=== PATIENT | male | born 1990 | race Caucasian/White ===

== ENCOUNTER 2020-11-03 12:58 | Emergency (ER) | payer OTHER, SELFPAY ==
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
[2020-11-03 13:06] VITALS: BP 136/74; PULSE 83; RESP 18; TEMP 36.3; O2SAT 99
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
[2020-11-03] MEDS: TETANUS,DIPHTHERIA,AC PERTUSSIS ADULT (0.5 ML) BOOSTRIX IM (13:56)
== END 2020-11-03 14:16 | disposition home or self-care (01) ==
PROVIDERS: Emergency Provider Nurse Practitioner
DX: S67.194A Crushing injury of right ring finger, initial encounter (principal); X58.XXXA Exposure to other specified factors, initial encounter; Z23 Encounter for immunization
CPT/HCPCS: 73140; 90471; 90715; 99203; G0463

== ENCOUNTER 2021-03-19 15:09 | Emergency (ER) | payer OTHER, SELFPAY ==
[2021-03-19 15:19] VITALS: BP 131/76; PULSE 80; RESP 18; TEMP 36.9; O2SAT 99
--- NOTE | 2021-03-19 15:26 | ED.UPPEXIN ---
HPI - Extremity Injury (Upper) General Chief Complaint: Extremity Injury, Upper Stated Complaint: both hand pain Time Seen by Provider: 03/19/21 15:30 Source: patient and RN notes reviewed Mode of arrival: ambulatory Limitations: no limitations History of Present Illness HPI narrative: 30-year-old male presents with multiple complaints. He reports 3 months ago he was playing golf when he swung a club and hit a tree causing hand pain. He reports direct trauma to the hand. 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 Reports since the golfing incident he has had pain in his hand, decreased digital tech strength, pain that radiates up towards the elbow. He denies intervention for that problem. In a separate complaint he reports yesterday he was moving tires when he stuck his hand inside a tire and had to puncture areas from something sharp inside the tire. He reports he washed the wound. He reports today he began having stinging pain and numbness in the area. He denies any redness, swelling, tenderness, drainage from the area. He denies decreased strength, range of motion. MD complaint: injury to: left, right and hand Related Data Allergies Allergy/AdvReac Type Severity Reaction Status Date / Time amoxicillin Allergy Unknown Rash Verified 03/19/21 15:23 ampicillin Allergy Unknown Rash Verified 03/19/21 15:23 clavulanic acid Allergy Unknown Rash Verified 03/19/21 15:23 CEPHALEXIN MONOHYDRATE Allergy Unknown Rash Uncoded 03/19/21 15:23 Review of Systems Review of Systems: CONSTITUTIONAL: Denies malaise, chills, sweats, or fever. SKIN: Denies redness, swelling, bruising, open skin MUSCULOSKELETAL: Reports chronic left hand pain, decreased digital tech strength. Reports stinging pain to the right hand near the digits 1 and 2 All systems reviewed & are unremarkable except as noted in HPI and below PMFSH Comments At time of signature, agree with nursing past medical, surgical, social and family history. There is no relevant family history pertinent to the presenting complaint Exam Narrative: GENERAL: Well-appearing, well-nourished, and in no acute distress. HEAD: Normocephalic EYES: PERRLA, conjunctivae clear NECK: Supple. CHEST: Speaks in full sentences. No respiratory distress. HEART: Regular rate and rhythm. Normal and equal peripheral pulses. EXTREMITIES: Bilateral hands and digits of hand have normal strength and sensation. 5/5 strength with digit flexion, extension. Range of motion normal. No clubbing, cyanosis, erythema, induration or edema noted. No tenderness. Skin intact. Normal digital cascade with flexion of fingers, median, ulnar and radial nerve intact. Normal sensation of each side of finger. Can perform 'okay' sign, 'cross over finger test of index and middle fingers' and 'thumbs up' sign. No scissoring. Normal thumb opposition. Good capillary refill and radial pulse. Distal capillary refill less than 3 seconds. SKIN: Warn, dry, intact, pink. No rash. No puncture wounds appreciated NEURO: Alert and oriented x3. PSYCH: Normal mood and affect Course Course Emergency Course: Patient is aware of diagnosis, understands and agrees to treatment plan. Anticipatory guidance given. Patient agrees to follow-up as directed and is aware of reasons to seek care at the emergency department. Portions of this record may have been created with voice recognition software Vital Signs Vital signs: Vital Signs Temperature 98.5 F 03/19/21 15:19 Pulse Rate 80 03/19/21 15:19 Respiratory Rate 18 03/19/21 15:19 Blood Pressure 131/76 03/19/21 15:19 Pulse Oximetry 99 03/19/21 15:19 Temperature 98.5 F 03/19/21 15:19 Pulse Rate 80 03/19/21 15:19 Respiratory Rate 18 03/19/21 15:19 Blood Pressure 131/76 03/19/21 15:19 Pulse Oximetry 99 03/19/21 15:19 Reviewed. MDM - Extremity Injury (Upper) MDM Narrative Medical decision making narrative: Patients injury and pain is consistent with musculoskeletal etiolog
== END 2021-03-19 15:45 | disposition home or self-care (01) ==
PROVIDERS: Emergency Provider Nurse Practitioner
DX: M77.8 Other enthesopathies, not elsewhere classified (principal); S61.431A Puncture wound without foreign body of right hand, initial encounter; W26.9XXA Contact with unspecified sharp object(s), initial encounter
CPT/HCPCS: 99213; G0463

== ENCOUNTER 2021-11-29 12:32 | Emergency (ER) | payer OTHER, SELFPAY ==
[2021-11-29 12:34] VITALS: BP 126/70; PULSE 71; RESP 20; TEMP 36.7; O2SAT 98
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
== END 2021-11-29 13:42 | disposition home or self-care (01) ==
PROVIDERS: Emergency Provider Registered Nurse
DX: J40 Bronchitis, not specified as acute or chronic (principal); J01.40 Acute pansinusitis, unspecified; J02.9 Acute pharyngitis, unspecified; Z87.891 Personal history of nicotine dependence
CPT/HCPCS: 87081; 87880; 99213; G0463

== ENCOUNTER 2022-03-06 17:39 | Emergency (ER) | payer OTHER, SELFPAY ==
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
[2022-03-06 17:44] VITALS: BP 133/78; PULSE 90; RESP 16; TEMP 36.7; O2SAT 98
== END 2022-03-06 18:15 | disposition home or self-care (01) ==
PROVIDERS: Emergency Provider Nurse Practitioner Family; PCP Nurse Practitioner Family
DX: J06.9 Acute upper respiratory infection, unspecified (principal); Z87.891 Personal history of nicotine dependence
CPT/HCPCS: 99211; G0463

== ENCOUNTER 2022-12-24 09:40 | Emergency (ER) | payer OTHER, SELFPAY ==
[2022-12-24 09:47] VITALS: BP 129/65; PULSE 97; RESP 16; TEMP 37.4; O2SAT 98
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
== END 2022-12-24 10:42 | disposition home or self-care (01) ==
PROVIDERS: Emergency Provider Nurse Practitioner Family; PCP Nurse Practitioner Family
DX: J32.9 Chronic sinusitis, unspecified (principal); Z87.891 Personal history of nicotine dependence
CPT/HCPCS: 87081; 87880; 99213; G0463

== ENCOUNTER 2023-07-13 08:02 | Emergency (ER) | payer OTHER, SELFPAY ==
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
[2023-07-13 08:11] VITALS: BP 154/87; PULSE 97; RESP 16; TEMP 36.6; O2SAT 97
== END 2023-07-13 08:17 | disposition home or self-care (01) ==
PROVIDERS: Emergency Provider Nurse Practitioner Family; PCP Nurse Practitioner Family
DX: H66.92 Otitis media, unspecified, left ear (principal); J06.9 Acute upper respiratory infection, unspecified; Z87.891 Personal history of nicotine dependence
CPT/HCPCS: 99213; G0463

== ENCOUNTER 2025-04-19 14:15 | Emergency (ER) | payer OTHER, SELFPAY ==
--- NOTE | ~2025-04-19 | XR_ITS ---
EXAMINATION: XR chest 2V 04/19/2025 15:06 INDICATION: Cough TECHNIQUE:Frontal and lateral images of the chest were obtained. COMPARISON: 04/18/2025 FINDINGS: The lungs are clear. The cardiomediastinal silhouette is within normal limits. There are no pleural effusions. There is no pneumothorax suspected. Hardware is noted in the right clavicle. IMPRESSION: 1: NO ACUTE CARDIOPULMONARY DISEASE. Reviewed, dictated and finalized at location Q.
--- OUTSIDE RECORDS SUMMARY | 2025-04-19 14:19 | XMS_ITS | Clinical Summary ---
Author Organization [facility] [address] Address [address] [place] [address] Care Team Providers Care Rail Detector Car Operator Name Role Phone Melony, Sosa Jacob NP Primary Care Provider [phone] Allergies Active Allergy Reactions Criticality Noted Date Comments Amoxicillin-Pot Clavulanate Cephalexin Penicillins Medications meclizine (ANTIVERT) 25 mg tablet Take 25 mg by mouth 3 (three) times a day as needed 0 Active albuterol HFA (PROVENTIL HFA,VENTOLIN HFA,PROAIR HFA) 90 mcg/actuation inhaler INHALE 2 PUFFS BY INHALATION 4 TIMES DAILY NEEDED FOR SHORTNESS OF BREATH OR WHEEZING. 2 Active famotidine (PEPCID) 40 mg tabletIndicatio ns:Laryngeal spasm Take 1 tablet (40 mg total) by mouth nightly 90 tablet 3 2 Active Active Problems Problem Noted Date Diagnosed Date Laryngeal spasm 01/13/2022 Assessment & Plan (01/13/2022 3:59 PM CDT): Pepcid 40 mg at bedtime [place] Smoking Cessation Hotline: 4-592-LYXU-YES LPR discussed and Handout provided Sensorineural hearing loss ( SNHL) of left ear with unrestricted hearing of right ear 01/13/2022 Assessment & Plan (01/13/2022 4:00 PM CDT): Hearing test Pain radiating to lower abdomen 11/13/2019 Overview (11/13/2019): Added automatically from request for surgery [id number] Change in bowel habits 11/13/2019 Overview (11/13/2019): Added automatically from request for surgery [id number] Change in stool caliber 11/08/2019 Assessment & Plan (11/08/2019 2:26 PM CDT): Pt says that for the last 6 months, he has had very thin stools and looks as if something is blocking part of it and shaving part of stool off as it comes out. He did mention that at one point last year, when he was lifting weights, he felt something pop and there was something outside his rectum that went away after he rested from exercise for a week or two. He also has issues with alternating constipation/diarrhea. Pt appears very anxious about symptoms. Will schedule colonoscopy. Constipation 11/08/2019 Assessment & Plan (11/08/2019 2:24 PM CDT): Pt says he skips a couple of days and then suddenly will have multiple BM's for a day, then goes back to skipping a couple days again. He says usually not diarrhea. Will have him use Miralax prn. I suspect his symptoms are likely functional but due to recent changes in stool caliber and constipation, will schedule colonoscopy to rule out other causes. Lower abdominal pain 11/08/2019 Assessment & Plan (11/08/2019 2:20 PM CDT): Occurs when he is constipated. He says it is a cramping pain and gets a lot of gas. Fracture of clavicle 04/18/2013 Surgical History Surgery Date Site/Laterality Comments COLONOSCOPY 11/20/2019 1st CLAVICLE SURGERY 08/22/2012 - 08/21/2013 Right Medical History Medical History Date Comments Concussion 07/2019 Dizziness 07/2019 since concussion Family History Medical History Relation Name Comments No Known Problems Father No Known Problems Mother Relation Name Status Comments Father Alive Mother Alive Social History Tobacco Use Types Packs/Day Years Used Date Smoking Tobacco: Former Smokeless Tobacco: Current Chew Alcohol Use Standard Drinks/Week Comments Not Currently 0 (1 standard drink = 0.6 oz pur e alcohol) Personal Safety Answer Date Recorded Getting School Help Needed Not on file 10/18 Sex and Gender Information Value Date Recorded Sex Assigned at Not on file 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 Gender Identity Not on file Sexual Orientation Not on file Obstetrics History Last Filed Vital Signs Vital Sign Reading Time Taken Comments Blood Pressure 128/76 01/13/2022 3:28 PM CDT Pulse 95 01/13/2022 3:28 PM CDT Temperature 36.5 C (97.7 F) 01/13/2022 3:28 PM CDT Respiratory Rate 18 01/13/2022 3:28 PM CDT Oxygen Saturation 96% 01/13/2022 3:28 PM CDT Inhaled Oxygen Concentration - - Weight 107.5 kg (237 lb) 01/13/2022 3:28 PM CDT Height 180.3 cm (5' 11) 01/13/2022 3:28 PM CDT Body Mass Index 33.05 01/13/2022 3:28 PM CDT Plan of Treatment Health Maintenance Due Date Last Done Comments Depression Screening 1988 Hepatitis C Screening 1988 Varicella Vaccines (1 of 2 - 13+ 2-dose series) 2001 Regular Well Visit/Exam 18-64 2006 HPV Vaccines (1 - 3-dose SCDM series) 2015 Covid-19 Vaccine ( season) 2024 07/23/2021 Influenza Vaccine (#1) 2025 08/24/2018, 2015 DTaP/Tdap/Td Vaccine (7 - Td or Tdap) 05/21/2026 05/21/2016, 03/25/2003, 04/08/1994, Additional history exists Hepatitis B Screening Completed 11/14/1998 , 06/12/1998, 05/09/1998 Pneumococcal vaccine <65 Aged Out No longer eligible based on patient's age to complete this topic Insurance [facility] Member Subscriber Plan / Payer (Ef fective 2018-Present) Name:Luly Hassan Relation to Subscriber:Self Name:Luly Hassan Payer ID:[id number] (NAIC) Group ID:Not on file Type:MEDICAID RISK OTHER Address: [address] [place], [place] [id number] [place] [address] [facility] Advance Directives For more information, please contact: [phone] * Full Code (Latest Code Status on File) Date Activated Date Inactivated Comments 11/20/2019 8:04 AM 11/20/2019 1:57 PM * Full Code Date Activated Date Inactivated Comments 11/20/2019 8:04 AM 11/20/2019 8:04 AM Care Teams Rail Detector Car Operator Relationship Specialty Start Date End Date Ty, Sosa Jacob NP [address] [place] [address] PCP - General Nurse Practitioner 10/22/19
--- OUTSIDE RECORDS SUMMARY | 2025-04-19 14:19 | XMS_ITS | Clinical Summary ---
Author Organization [facility] Address [address] [place] [address] Phone Care Team Providers Care Health Promotion Educator Name Role Phone Melony, Sosa HELLER CNP Primary Care Provider [phone] Allergies Active Allergy Reactions Criticality Noted Date Comments Cephalexin Unknown 09/14/2020 Childhood allergy Penicillins Unknown 09/14/2020 Childhood allergy Medications naproxen (NAPROSYN) 500 MG Tablet Take 1 Tablet by mouth 2 times daily as needed for Mild or more severe pain. 20 Tablet 11/26/2022 Active ibuprofen (MOTRIN) 800 MG Tablet Take 1 Tablet by mouth every 8 hours. 30 Tablet 06/09/2023 Active Active Problems Problem Noted Date Diagnosed Date Stress and adjustment reaction 01/20/2024 Immunizations Immunization Administration Dates Next Due Covid-19, Mrna, Lnp-s, Pf, 30 Mcg/0.3 Ml Dose (P fizer) 07/23/2021 Social History Tobacco Use Types Packs/Day Years Used Date Smoking Tobacco: Never Smokeless Tobacco: Never Alcohol Use Standard Drinks/Week Comments Not Currently 0 (1 standard drink = 0.6 oz pur e alcohol) Sex and Gender Information Value Date Recorded Sex Assigned at Not on file Legal Sex Male 10:43 PM CDT Gender Identity Not on file Sexual Orientation Not on file Last Filed Vital Signs Vital Sign Reading Time Taken Comments Blood Pressure 121/68 08/08/2024 12:32 PM ASBESTOS CLOTH INSPECTOR Pulse 85 08/08/2024 12:32 PM ASBESTOS CLOTH INSPECTOR Temperature 36.8 C (98.2 F) 08/08/2024 12:32 PM ASBESTOS CLOTH INSPECTOR Respiratory Rate 16 08/08/2024 12:32 PM ASBESTOS CLOTH INSPECTOR Oxygen Saturation 96% 08/08/2024 12:32 PM ASBESTOS CLOTH INSPECTOR Inhaled Oxygen Concentration - - Weight 106.6 kg (235 lb) 08/08/2024 9:24 AM ASBESTOS CLOTH INSPECTOR Height 180.3 cm (5' 11) 08/08/2024 9:24 AM ASBESTOS CLOTH INSPECTOR Body Mass Index 32.78 08/08/2024 9:24 AM ASBESTOS CLOTH INSPECTOR Plan of Treatment Health Maintenance Due Date Last Done Comments Hepatitis C Virus (HCV) Screening 1988 Human Papillomavirus (HPV) Immunization (1 - 3-dose SCDM series) 2015 SARS-COV-2 Immunization ( season) 2024 07/23/2021 Influenza Immunization (#1) 04/22/202506/24, 08/24/2018, 05/21/2016 Respiratory Syncytial Virus (RSV) Immunization (Adult) (1 - 1-dose 75+ series) 2063 Hepatitis B Immunization Completed 999, 06/12/1998, 05/09/1998 DTaP/Tdap/Td Immunization Discontinued 2020, 05/21/2016, 03/25/2003, Additional history exists TdaP Immunization Completed 11/03/2020, 05/21/2016 Meningococcal Immunization (ACWY) Aged Out No longer eligible based on patient's age to complete this topic Pneumococcal Immunization Combined Aged Out No longer eligible based on patient's age to complete this topic Rotavirus Immunization Aged Out No lo nger eligible based on patient's age to complete this topic Goals Goal Patient Goal Type Associated Problems Recent Progress Patient-Stated? Author process stressors Behavioral Health Improving( 10:13 AM CDT) Yes Nadia Millan, CORRECTION WORKER Note: Goal/Objective: Increase ability to handle stressors. Anticipated Time Frame for Goal Completion: 8 months Goal Reviewed with: patient today Readiness to change: Ready to change Department associated with goal: [facility] Steps to achieve goal: will attend counseling/psychotherapy sessions at least once monthly, at least 6 sessions, utilizing individual and/or group sessions to express thoughts and feelings. to identify, verbalize and process at least three contributing factors/triggers to anxiety and depression. to identify and verbalize at least three actions/skills to prevent and/or cope with anxiety and depression. to put into action, at least one time weekly, for one month, an action/skill to prevent and or cope with anxiety and depression. Insurance Care Teams Health Promotion Educator Relationship Specialty Start Date End Date Sosa Ty APRN, JOE PCP - General Family Medicine 02/23/19
--- OUTSIDE RECORDS SUMMARY | 2025-04-19 14:19 | XMS_ITS | Clinical Summary ---
Author Organization [facility] Address [facility] [place] [address] Care Team Providers Care Information Technology Auditor Name Role Phone Sosa Ty BRITTANYROC Primary Care Provider [phone] Allergies No known active allergies Medications No known medications Social History Tobacco Use Types Packs/Day Years Used Date Smoking Tobacco: Never Smokeless Tobacco: Never Tobacco Cessation:Counseling Given: Not Answered Alcohol Use Standard Drinks/Week Comments Yes 0 (1 standard drink = 0.6 oz pur e alcohol) rarely Sex and Gender Information Value Date Recorded Sex Assigned at Not on file Legal Sex Male 3:46 PM EXPANDER Gender Identity Not on file Sexual Orientation Not on file Last Filed Vital Signs Vital Sign Reading Time Taken Comments Blood Pressure 123/79 10/22/2023 6:30 PM EXPANDER Pulse 63 10/22/2023 6:30 PM EXPANDER Temperature 36.3 C (97.4 F) 10/22/2023 3:55 PM EXPANDER Respiratory Rate 16 10/22/2023 6:30 PM EXPANDER Oxygen Saturation 97% 10/22/2023 6:30 PM EXPANDER Inhaled Oxygen Concentration - - Weight 113.4 kg (250 lb) 10/22/2023 3:55 PM EXPANDER Height 177.8 cm (5' 10) 10/22/2023 3:55 PM EXPANDER Body Mass Index 35.87 10/22/2023 3:55 PM EXPANDER Plan of Treatment Health Maintenance Due Date Last Done Comments Annual Physical 1991 Hepatitis C 2006 HPV Vaccines (1 - 3-dose SCDM series) 2015 COVID-19 Vaccine ( season) 2024 07/23/2021 DTaP, Tdap and Td Vaccines (8 - Td or Tdap) 11/03/2030 11/03/2020, 05/21/2016, 03/25/2003, Additional history exists Hepatitis B Vaccines Completed 11/14/1998, 06/12/1998, 05/09/1998 Meningococcal B Vaccine Aged Out No l onger eligible based on patient's age to complete this topic Meningococcal Vaccine Aged Out No justin doug eligible based on patient's age to complete this topic Pneumococcal Vaccine: Pediatrics (0 to 5 Years) and At-Risk Patients (6 to 49 Years) Aged Out No longer eligible based on patient's age to complete this topic RSV Immunizations Under 20 Months Aged Out No longer eligible based on patient's age to complete this topic Insurance [employer] Care Teams Information Technology Auditor Relationship Specialty Start Date End Date Sosa Ty APNP PCP - General NURSE PRACTITIONER 10/22/23
--- OUTSIDE RECORDS SUMMARY | 2025-04-19 14:19 | XMS_ITS | Encounter Summary ---
Author Organization [facility] Healthcare Address [address] [place] [address] Care Team Providers Care Global Position System Technician Name Role Phone Sosa Ty NP Primary Care Provider [phone] Encounter Details Date Type Department Care Team (Late st Contact Info) Description 10/22/2019 Telephone [facility] [address] [place] [address] Sosa Ty NP [address] [place] [address] Social History Tobacco Use Types Packs/Day Years Used Date Smoking Tobacco: Never Assessed Sex and Gender Information Value Date Recorded Sex Assigned at Not on file 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
--- NOTE | 2025-04-19 14:27 | ED_ITS ---
HPI - URI/Sore Throat General Chief Complaint: Upper Respiratory Infection Stated Complaint: cough/chest tightness Time Seen by Provider: 04/19/25 14:27 Source: patient, RN notes reviewed and old records reviewed Mode of arrival: ambulatory Limitations: no limitations History of Present Illness HPI Narrative: 34-year-old male presents to [facility] with a productive cough, fatigue, feeling feverish since Tuesday, 4 days. Reports using cough drops and taking Zyrtec. Patient also reports that 9 days ago he was lifting weights have either than normal when he felt a pull in his right clavicle. Has a plate that was placed February of 2013. States the pain is better today. Related Data Home Medications ?Medication ?Instructions ?Recorded ?Confirmed ?Last Taken ?Type buspirone 5 mg tablet mg 04/19/25 Unknown History vit d weekly 04/19/25 Unknown History Allergies Allergy/AdvReac Type Severity Reaction Status Date / Time Penicillins Allergy Intermediate Hives Verified 04/19/25 14:37 amoxicillin Allergy Unknown Rash Verified 04/19/25 14:37 ampicillin Allergy Unknown Rash Verified 04/19/25 14:37 cephalexin (From Keflex) Allergy Unknown Rash Verified 04/19/25 14:37 clavulanic acid Allergy Unknown Rash Verified 04/19/25 14:37 Review of Systems 2 Review of Systems: All systems reviewed & are unremarkable except as noted in HPI and below Constitutional: Constitutional: Reports as per HPI, Reports body ache(s), Reports fatigue and Reports fever(s) (Subjective) ENT: Reports system reviewed and no additional complaints, except as do cumented Cardiovascular: Cardiovascular: Reports no additional cardiovascular complaints, Denies chest pain and Denies dyspnea Respiratory: Respiratory: Reports as per HPI, Denies chest congestion, Reports cough and Denies dyspnea Musculoskeletal: Musculoskeletal: Reports no additional musculoskeletal complaints Integumentary/Breasts: Skin/Breast: Reports system reviewed and no additional complaints, except as docu PMFSH Past Medical History Medical History Open right clavicular fracture repair from 2012 Surgical History Surgical History History of dental surgery Social History Social History Smoking status: Former smoker Tobacco type: cigarettes Substance use: former Substance use type: marijuana Living arrangements: with family Gender identity (if verbalized by the patient): Male Comments At the time of my signature, I reviewed and agree with the nursing past medical, surgical, social, and family history. There is no relevant family history pertinent to the patient complaint. Exam Const: General: cooperative, healthy appearing, comfortable, no acute distress, well developed, alert and well nourished Nutritional Appearance: well nourished Orientation/consciousness: patient oriented x3 Limitations: no limitations HENMT: Head: normal to inspection Ears: hearing grossly normal bilaterally, external ears normal, TM's normal bilaterally, EAC's normal, mastoids normal and no periauricular adenopathy Face/Nose/Sinus: Normal external nose present and No nasal discharge present Mouth: Yes Normal oral and palatal mucosa present, Yes lip normal, Yes tongue normal and Yes moist mucous membranes Throat: posterior oropharynx normal, uvula midline and no uvular edema Eyes: General: appearance normal, both eyes and all related structures Alignment and Position: alignment normal Neck: Neck: normal visual inspection, full ROM, no lymphadenopathy and no meningeal signs Chest: Chest palpation & inspection: normal inspection of the chest Resp: Effort & Inspection: normal respiratory effort, able to speak in complete sentences, Actively coughing dry, no grunting, not labored and no stridor Auscultation: clear to auscultation bilaterally, no crackles, no rales, no rhonchi and no wheezes Cardio: Rate: regular rate Skin: General skin exam: normal color and no rashes or lesions noted Neuro: General: patient oriented x3, gait normal, moves all extremities and no meningeal signs Cognition (Neuro): normal cognition Speech: normal speech Gait exam (Neuro): Normal gait present Extrem: General: normal to inspection, full ROM, capillary refill normal and normal gait Psych: Appearance: grossly normal and well kempt Mental Status: mental status grossly normal Speech and movement: Normal speech and movement present and Clear speech present Affect: normal affect Attitude: cooperative Course Course Level of Care: Express Care Visit Vital Signs Vital signs: Vital Signs Temperature 98.9 F 04/19/25 14:37 Pulse Rate 105 H 04/19/25 14:37 Respiratory Rate 20 04/19/25 14:37 Blood Pressure 160/94 H 04/19/25 14:37 Pulse Oximetry 99 04/19/25 14:37 Oxygen Delivery Room Air 04/19/25 14:37 Temperature 98.9 F 04/19/25 14:37 Pulse Rate 105 H 04/19/25 14:37 Respiratory Rate 20 04/19/25 14:37 Blood Pressure 160/94 H 04/19/25 14:37 Pulse Oximetry 99 04/19/25 14:37 Oxygen Delivery Room Air 04/19/25 14:37 Reviewed MDM - URI/Sore Throat MDM Narrative Medical decision making narrative: Patient sitting in exam room. Patient is nontoxic, vitals are stable. Patient presents with 4 day history of a productive cough. Patient's flu COVID and strep were all negative, chest x-ray is negative Patient is appropriate for outpatient treatment with close follow-up Discharge instructions reviewed with patient, as well as provided in writing per nursing staff. The instructions also include specific and strict return/GO TO THE ER as well as f/u information. All questions have been answered, and the patient deny any further questions with discharge and discharge plan. Some parts of this dictation were generated by voice recognition software and may contain typographical and/or grammatical inaccuracies. Differential Diagnosis Differential diagnosis: Likely upper respiratory infection, otitis media, sinusitis, viral infection, bronchitis, influenza and pharyngitis Lab Data Labs: Lab Results 04/19/25 Range/Units 14:45 POC Influenza A Ag Negative (Negative) POC Influenza B Ag Negative (Negative) POC SARS CoV-2 Ag Negative (Negative) Reviewed Critical Care Time Critical Care Time Critical Care Time: No Discharge Plan Discharge Clinical Impression: Bronchitis Upper respiratory infection Qualifiers: URI type: unspecified viral URI Qualified Code(s): J06.9 - Acute upper r espiratory infection, unspecified Patient Disposition: Home Condition: Stable Instructions: Antibiotic Form, Acute Bronchitis (ED) Additional Instructions: Your rapid COVID test were negative Your rapid flu test was negative Today your x-ray did not show signs of pneumonia. Today your blood pressure was 160/94. Is highly recommended you follow-up with your primary care provider within 2 weeks to have this rechecked. Untreated or undertreated blood pressure complete more serous health issues. Your symptoms are likely due to a viral illness, which is not treated with anti biotics. Typically viral infections last 7-10 days, can linger for couple of weeks. It is very important to treat your symptoms. Drink plenty of water, Gatorade, Pedialyte, ice pops or Jell-O. -Alternate Tylenol and Motrin per package directions for fever or pain. You can alternate every 4 hours -Antihistamine medication such as Zyrtec/Claritin/Anna during the day can help improve symptoms. -doing daily nasal irrigations can help relieve pressure your sinuses. Things like a Neti pot -Use Flonase twice a day for 5 days then daily to help reduce the inflammation and dry up your sinuses. -You can also use Mucinex. Be sure to drink plenty of water with this medication at least 8 ounces with every dose and it is important to drink 8 to 10 glasses of water per day. Water is a natural decongestant -Eat and drink things that are easy to swallow, like tea or soup, or popsicles. -Oral rinses such as: Salt water gargles and/or may use topical anesthetic (eg. Chloraseptic spray) or lozenges to relieve dryness or throat pain). -Frequent hand washing or hand batt packer is one of the best ways to prevent spread of infection. -Using a vaporizer or humidifier at night will also help thin secretions and help with coughing up phlegm. -Follow up with primary care provider in 7-10 days if condition is not improving - For new or worsening symptoms go directly to the nearest ER Patient Language: Georgian Prescriptions: New albuterol sulfate [Ventolin HFA] 90 mcg/actuation HFA aerosol inhaler 2 puff inhalation QID PRN (Reason: shortness of breath or wheezing) Qty: 6.7 0RF No Action buspirone 5 mg tablet vit d weekly Follow-up/Referrals: Melony,Sosa Blum APN [Primary Care Provider, Unknown] - 1 Week Referral Note: Blood pressure check, 160/94 Clinical Impression: Bronchitis Stand Alone Forms: Work/School Release IP Time of Disposition: 15:27
[2025-04-19 14:37] VITALS: BP 160/94; PULSE 105; RESP 20; TEMP 37.2; O2SAT 99
[2025-04-19 14:47] LABS: EDCOVIDSCREEN Negative (Negative); EDINFLUASCREEN Negative (Negative); EDINFLUBSCREEN Negative (Negative)
== END 2025-04-19 15:36 | disposition home or self-care (01) ==
PROVIDERS: Emergency Provider Nurse Practitioner; PCP Nurse Practitioner Family
DX: J40 Bronchitis, not specified as acute or chronic (principal); J06.9 Acute upper respiratory infection, unspecified; Z87.891 Personal history of nicotine dependence; Z20.822 Contact with and (suspected) exposure to COVID-19
CPT/HCPCS: 71046; 87426; 87804; 99213; G0463